=== PATIENT | female | born 1940 | race Caucasian/White ===

== ENCOUNTER → 2017-01-04 | Outpatient (CLI) | payer MEDICARE ==
--- NOTE | 2017-01-04 14:51 | MAM ---
History: Well woman exam. Date of exam: 01/04/2017 Services provided: Bilateral full field digital screening mammography. CAD, the images were reviewed with R2 computer aided detection. FINDINGS: Glandular tissue is scattered glandular parenchymal pattern. Comparison with 2013 study. Technologist indicates positioning was limited by patient body habitus and condition. No dominant mass, architectural distortion. Benign calcifications. Small nodule, well-defined in the left breast and shown only on the craniocaudal view has slightly enlarged since 2013. At that time an ultrasound was performed and demonstrated the nodule within the skin. IMPRESSION: Benign exam Recommendation: Routine annual mammography if health screening is appropriate. BIRAD CATEGORY: 2 BENIGN Electronically signed by: Alisha Cabrera MD 01/04/2017 2:49 PM CDT
== END ==
LOC: MAMMO 08:06
PROVIDERS: ATTEND Family Medicine
DX: Z12.31 Encounter for screening mammogram for malignant neoplasm of breast (principal)

== ENCOUNTER → 2017-05-30 | Outpatient (CLI) | payer MEDICARE | END | disposition home or self-care (01) | LOC: GMAL 10:24 | PROVIDERS: ATTEND Family Medicine | DX: D51.3 Other dietary vitamin B12 deficiency anemia (principal); E55.9 Vitamin D deficiency, unspecified ==

== ENCOUNTER → 2018-01-28 | Outpatient (CLI) | payer MEDICARE ==
--- NOTE | 2018-01-29 09:35 | MAM ---
EXAM DESCRIPTION: 3D Screening, Bilateral: Digital Mammography CLINICAL HISTORY: 77 yearsFemaleSCREEN . No complaints. Mother with breast cancer. Postmenopausal. No HRT. Prior left breast cyst aspiration and benign biopsy. COMPARISON: 2-D digital screening bilateral study 01/04/2017. Report from prior examination also reviewed. TECHNIQUE: Bilateral CC MLO projection full-field images, 3-D tomosynthesis digital mammographic technique. Also bilateral synthesized CC MLO full-field images. CAD not utilized. Note: Patient Placement Coordinator notes indicate positioning was suboptimal due to patient body habitus and unable to stand. FINDINGS: The breast parenchymal density pattern is: Scattered areas of fibroglandular density. No skin thickening or nipple retraction bilateral solitary coarse calcifications and microcalcifications. Group of coarse calcifications lower mid right breast. No focal, stellate mass or density, focal asymmetry , and no suspicious microcalcifications bilaterally. Stable mammograms compared to prior study, taking into account differences in mammographic technique IMPRESSION: BI-RADS CATEGORY: 2 - BENIGN FINDINGS. FOLLOW UP: Routine digital bilateral screening, one year interval from date Written communication explaining the IMPRESSION and follow-up, will be mailed to the patient and referring health care provider. According to the [employer], yearly mammograms are recommended starting at age 40 and continuing as long as a woman is in good health. Any breast change noted on a breast self-exam should be reported promptly to the patient's healthcare provider. Breast MRI is recommended for women with an approximately 20-25% or greater lifetime risk of breast cancer, including women with a strong family history of breast or ovarian cancer and women who have been treated for Hodgkin's disease. A negative mammographic report should not delay tissue diagnosis in patients with significant clinical history or physical findings. Extremely dense breast tissue limits the sensitivity of digital mammography. Electronically signed by: Roberto Carlos Sullivan MD 01/29/2018 9:33 AM CDT
== END ==
LOC: MAMMO 11-13 09:05
PROVIDERS: ATTEND Family Medicine
DX: Z12.31 Encounter for screening mammogram for malignant neoplasm of breast (principal)
CPT/HCPCS: 77066; G0279

== ENCOUNTER → 2018-04-17 | Outpatient (CLI) | payer MEDICARE ==
--- NOTE | 2018-04-17 13:57 | US ---
US THYROID CLINICAL STATEMENT: NODULE. No palpable mass, no prior surgery, no therapy. COMPARISON: None. FINDINGS: Size right thyroid lobe: 5.1 x 2.8 x 2.8 cm Size left thyroid lobe: 3.9 x 2.3 x 2.0 cm Size isthmus: 0.3 cm Estimated total number of nodules greater than or equal to 1 cm: 4 Nodule 1: Size: 3.0 x 2.5 x 2.5 cm Location: Right Lower Composition: solid or almost completely solid: 2 points Echogenicity: hyperechoic: 1 point Shape: taller than wide: 3 points Margins: ill-defined: 0 points Echogenic foci: none: 0 points ACR Total Points: 6; ACR TI-RADS risk category: TR4 - moderately suspicious nodule. Nodule 2: Size: 1.5 x 1.1 x 1.0 cm Location: Right Upper Composition: solid or almost completely solid: 2 points Echogenicity: hyperechoic: 1 point Shape: Wider than tall. Margins: smooth: 0 points Echogenic foci: none: 0 points ACR Total Points: 3; ACR TI-RADS risk category: TR3 - mildly suspicious nodule. Nodule 3: Size: 1.0 x 0.8 x 0.7 cm Location: Left Mid Composition: spongiform: 0 points Echogenicity: hyperechoic: 1 point Shape: wider than tall: 0 points Margins: ill-defined: 0 points Echogenic foci: peripheral calcifications: 2 points ACR Total Points: 3; ACR TI-RADS risk category: TR3 - mildly suspicious nodule. Nodule 4: Size: 1.3 x 1.2 x 1.1 cm Location: Left Upper Composition: solid or almost completely solid: 2 points Echogenicity: hypoechoic: 2 points Shape: wider than tall: 0 points Margins: smooth: 0 points Echogenic foci: peripheral calcifications: 2 points ACR Total Points: 6; ACR TI-RADS risk category: TR4 - moderately suspicious nodule. Tissue around the thyroid gland show no evidence of large calcifications or parenchymal edema. No distinct solid mass or cysts. No overlying skin changes. No abnormal vascularity. IMPRESSION: 1. Nodule 1: ACR TI-RADS 2017 Category TR 4. Recommend: Ultrasound-guided fine needle aspiration 2. Nodule 2: ACR TI-RADS 2017 Category TR 3. Recommend: Follow-up ultrasound in 1 year. 3. Nodule 3: ACR TI-RADS 2017 Category TR 3. Recommend: No further follow-up. 4. Nodule 4: ACR TI-RADS 2017 Category TR 4. Recommend: Follow-up ultrasound in 1 year. Soft tissues around the thyroid gland were unremarkable. ACR TI-RADS 2017 Recommendations: TR1: No FNA or follow up TR2: No FNA or follow up TR3: FNA if >/= 2.5 cm, follow up if 1.5 - 2.4 cm in 1, 3, and 5 years TR4: FNA if >/= 1.5 cm, follow up if 1.0 - 1.4 cm in 1, 2, 3, and 5 years TR5: FNA if >/= 1.0 cm, follow up if 0.5 - 0.9 cm every year for 5 years *ACR TI-RADS recommends that no more than two nodules with the highest ACR TI-RADS total point should be biopsied and no more than four nodules should be followed. Electronically signed by: Roberto Carlos Sullivan MD 04/17/2018 1:55 PM CDT
== END ==
LOC: US 08:31
PROVIDERS: ATTEND Family Medicine
DX: E04.8 Other specified nontoxic goiter (principal)

== ENCOUNTER → 2018-08-05 | Day surgery (SDC) | payer MEDICARE | LOC: AMB 05:58 | PROVIDERS: ATTEND Ophthalmology | DX: H26.491 Other secondary cataract, right eye (principal) ==

== ENCOUNTER → 2018-10-08 | Outpatient (CLI) | payer MEDICARE ==
--- NOTE | 2018-10-08 15:10 | MRI ---
EXAM DESCRIPTION: Lumbar Spine w/o Contrast : Magnetic Resonance Imaging. CLINICAL HISTORY: LOW BACK PAIN COMPARISON: None. TECHNIQUE: Multiplanar, multiple standard sequences, non contrast MRI, lumbar spine. FINDINGS: L5-S1: Disc desiccation. Calcification versus air in the central disc. Disc space maintained. Posterior flavum ligament hypertrophy and bilateral facet arthrosis. Mild canal narrowing. Moderate narrowing left foramen and mild narrowing right foramen. L4-5: Disc desiccation and posterior disc space narrowing narrowed. No significant bulging. Bilateral flavum ligament hypertrophy and facet arthrosis and hypertrophy. Small synovial cyst from the left facet joint inferiorly impressing on the left posterior lateral thecal sac. Moderate canal narrowing. Left side facet and disc complex resulting in moderate foraminal narrowing. Mild narrowing of the right foramen. L3-4: Disc desiccation and minimal disc space loss on the left. Grade 2 endplate reactive changes on the right with disc spur complex encroaching on the foramen as well as the right facet. Moderate to severe right foraminal narrowing bilaterally. Bilateral flavum ligament hypertrophy and facet degenerative hypertrophy compressing the thecal sac with AP canal diameter 8 mm. Synovial cyst from the right facet impressing on the right posterior lateral thecal sac. L2-3: Right side disc space loss and disc desiccation with Modic type II endplate reactive changes. Mild foraminal narrowing. Anterior and disc bulge with spurs. Left side Modic type III endplate reactive changes with disc spur complex encroaching on the left foramen. Borderline foraminal stenosis. Posterior midline disc bulge and bulge inferior to the disc space on the right effacing the right subarticular recess. Mild flavum ligament hypertrophy and facet joint arthrosis. L1-2: Diffuse disc desiccation. Modic type II endplate reactive changes on the right with disc osteophyte complex causing mild narrowing right foramen. Anterior bulging with spurs. Posterior broad-based disc bulge abutting the thecal sac. Mild hypertrophy and facet joint arthrosis with mild to moderate canal narrowing. Left side Modic type III disc osteophyte complex encroaching on the foramen with moderate narrowing. Circumscribed hyperintense T1 and T2 nodule in the L1 vertebral body consistent with a hemangioma. T12-L1: Disc desiccation and moderate disc space loss. Midline and left paracentral disc osteophyte complex encroaching on the canal and the left foramen with moderate foraminal narrowing. Mild right foraminal narrowing. 5 mm right paracentral disc protrusion encroaching on the thecal sac, abutting the conus, and the descending right L1 nerve. Right paracentral borderline canal stenosis. L1 - L3 dextroscoliosis. Paravertebral soft tissues paraspinal muscle atrophy.. Normal marrow signal in the remaining vertebral bodies and the posterior elements. Vertebral bodies are not compressed at any level. IMPRESSION: 1. Small synovial cyst from the left facet at L4-5 disc impressing on the posterior lateral thecal sac. Synovial cyst from the right facet at L3-4 impressing on the right posterior lateral thecal sac. 2. Multifactorial mild to moderate central canal stenosis at L3-4. 3. Left side disc spur complex at L2-3 with borderline left foraminal stenosis. Correlate for left L2 radiculopathy. Right posterior inferior focal bulge or protrusion of the disc effacing the right subarticular recess. Correlate for right L3 radiculopathy. 4. Right paracentral protrusion of the T12-L1 disc abutting the thecal sac and the descending right L1 nerve. Electronically signed by: Roberto Carlos Sullivan MD 10/08/2018 3:08 PM [facility]
== END ==
LOC: LAB.O 12:41
PROVIDERS: ATTEND Family Medicine
DX: M71.38 Other bursal cyst, other site (principal); M25.78 Osteophyte, vertebrae; M51.25 Other intervertebral disc displacement, thoracolumbar region; M25.50 Pain in unspecified joint; N18.1 Chronic kidney disease, stage 1

== ENCOUNTER → 2019-02-18 | Outpatient (CLI) | payer MEDICARE ==
--- NOTE | 2019-02-19 15:55 | MAM ---
EXAM DESCRIPTION: 3D Screening BILATERAL : Digital Mammography. CLINICAL HISTORY: 78 years Female ANNUAL SCREENING . No complaints or personal history of breast cancer. Mother with breast cancer and also remote family members childbirth. Postmenopausal over 40 years. HRT 5 or more years ago. Benign cyst aspiration biopsy left breast. Lifetime risk of developing breast cancer (Tyrer-Cuzick model)(%): 9. 3. COMPARISON: Bilateral screening digital breast tomosynthesis 01/28/2018.. TECHNIQUE: Bilateral CC and MLO projection full-field images digital tomosynthesis mammographic technique. Bilateral digital 2-D full-field MLO images. CAD not available for tomosynthesis or 2-D images. FINDINGS: The breast parenchymal density pattern is: Scattered areas of fibroglandular density. No skin thickening or nipple retraction. Bilateral microcalcifications. Group of coarse calcifications in the lower inner quadrant of the middle third of the right breast. Stable nodule inferior posterior medial left breast. No new focal, stellate mass or density, focal asymmetry , and no suspicious microcalcifications bilaterally. Stable mammograms compared to prior study. IMPRESSION: Benign exam. BIRAD CATEGORY: 2 BENIGN FINDINGS. RECOMMENDATIONS: FOLLOW UP: Routine digital bilateral mammographic screening, one year interval from . 2019. Written communication explaining the IMPRESSION and follow-up, will be mailed to the patient and referring health care provider. According to the [employer], yearly mammograms are recommended starting at age 40 and continuing as long as a woman is in good health. Any breast change noted on a breast self-exam should be reported promptly to the patient's healthcare provider. Breast MRI is recommended for women with an approximately 20-25% or greater lifetime risk of breast cancer, including women with a strong family history of breast or ovarian cancer and women who have been treated for Hodgkin's disease. A negative mammographic report should not delay tissue diagnosis in patients with significant clinical history or physical findings. Extremely dense breast tissue limits the sensitivity of digital mammography. Electronically signed by: Roberto Carlos Sullivan MD 02/19/2019 3:54 PM CDT
== END ==
LOC: MAMMO 08:45
PROVIDERS: ATTEND Family Medicine
DX: Z12.31 Encounter for screening mammogram for malignant neoplasm of breast (principal)

== ENCOUNTER → 2019-03-26 | Outpatient (CLI) | payer MEDICARE | LOC: GMAL 10:57 | PROVIDERS: ATTEND Family Medicine | DX: D50.8 Other iron deficiency anemias (principal); I10 Essential (primary) hypertension; E11.610 Type 2 diabetes mellitus with diabetic neuropathic arthropathy ==

== ENCOUNTER → 2019-06-19 | Outpatient (CLI) | payer MEDICARE, OTHER ==
--- NOTE | 2019-06-19 17:54 | RAD ---
EXAM DESCRIPTION: Knee,Right Complete CLINICAL HISTORY: KNEE PAIN COMPARISON: None FINDINGS: 4 views of the right knee. Complete medial compartment joint space loss is present subchondral sclerosis, cystlike formation and large marginal osteophytes. Advanced patellofemoral and lateral compartment joint space loss is present with marginal osteophyte formation. No acute fracture. Joint effusion is present. Bone density within normal limits. IMPRESSION: End-stage osteoarthritis of the right knee. Electronically signed by: Dane Silva MD 06/19/2019 5:52 PM CDT
--- NOTE | 2019-06-19 17:54 | RAD ---
EXAM DESCRIPTION: Pelvis CLINICAL HISTORY: HIP PAIN COMPARISON: None FINDINGS: Single frontal view the pelvis. No fracture, desiccation aggressive bone lesion is demonstrated. Joints and sacral struts are maintained. Advanced facet arthritis of the lower lumbar spine can contribute to referred posterior/hip pain. Large amount of formed stool noted within the rectal vault. IMPRESSION: Lumbar facet arthritis can contribute to referred/posterior hip pain. Constipation. No advanced osteoarthritis of the hip joints. Electronically signed by: Dane Silva MD 06/19/2019 5:53 PM CDT
== END ==
LOC: RAD 08:01
PROVIDERS: ATTEND Orthopaedic Surgery
DX: M47.896 Other spondylosis, lumbar region (principal); K59.00 Constipation, unspecified; M17.11 Unilateral primary osteoarthritis, right knee

== ENCOUNTER → 2020-11-09 | Outpatient (CLI) | payer MEDICARE, OTHER | LOC: GMAL 11:49 | PROVIDERS: ATTEND Family Medicine | DX: D51.3 Other dietary vitamin B12 deficiency anemia (principal); E55.9 Vitamin D deficiency, unspecified; E04.8 Other specified nontoxic goiter; E78.49 Other hyperlipidemia; I10 Essential (primary) hypertension ==